=== PATIENT | male | born 1995 | race Caucasian/White ===

== ENCOUNTER → 2017-10-12 | Outpatient (CLI) | payer OTHER ==
[~2017-10-12] MED LIST: ALL60 PO; AZITTAB PO
== END | disposition home or self-care (01) ==
LOC: C.LAB1850 16:13
PROVIDERS: ATTEND Neuromusculoskeletal Medicine & OMM
DX: Z11.3 Encounter for screening for infections with a predominantly sexual mode of transmission (principal)